=== PATIENT | male | born 1995 | race Caucasian/White ===

== ENCOUNTER 2016-09-17 17:22 | Emergency (ER) | payer OTHER ==
[2016-09-17] MEDS ORDERED: NS 0.9% 1000 ML* 1,000 ML IV ONE (17:52)
--- NOTE | 2016-09-17 18:10 | ED ---
HPI Febrile Illness - HPI Summary HPI Summary: Patient is a healthy 21 yo male who presents for evaluation of chest pain. Patient was having some body aches and fever on Thursday night. Continued on Thursday, but with superior chest pain. Sharp and intermittent, atraumatic, non radiating pain. Does not recall any trauma, heavy lifting. No exertional or positional assocaition to the chest pain. Took motrin 400 mg last night with resolution of the fever and body aches. Nearly resolved chest pain today, but since still there went to the [facility]. Has been trying to drink soup and crackers, but feels a little lightheaded with standing. Denies recent antibiotics or antipyretics before arrival, recent travel. Had EKG performed at the [facility] and was directed to the ED. - History of Current Complaint Chief Complaint: EDChestPainROMI Time Seen by Provider: 09/17/16 17:42 Hx Obtained From: Patient Onset/Duration: Started Days Ago Initial Severity: Moderate Current Severity: None Pain Intensity: 1 - Allergy/Home Medications Allergies/Adverse Reactions: Allergies Allergy/AdvReac Type Severity Reaction Status Date / Time No Known Allergies Allergy Verified 09/17/16 17:24 PMH/Surg Hx/FS Hx/Imm Hx Previously Healthy: Yes Infectious Disease History: No Infectious Disease History: Denies: Traveled Outside the [place] in Last 30 Days Review of Systems Negative: Fever, Chills Positive: Chest Pain. Negative: Palpitations Respiratory: Negative Negative: Shortness Of Breath, Cough All Other Systems Reviewed And Are Negative: Yes Physical Exam Triage Information Reviewed: Yes Vital Signs On Initial Exam: Initial Vitals Temp Pulse Resp BP Pulse Ox 100 F 125 20 148/78 97 09/17/16 17:24 09/17/16 17:24 09/17/16 17:24 09/17/16 17:24 09/17/16 17:24 Vital Signs Reviewed: Yes Appearance: Positive: Well-Appearing, No Pain Distress, Well-Nourished Skin: Positive: Warm, Skin Color Reflects Adequate Perfusion, Dry, Other - Slightly reproducible superior sternal chest pain. Eyes: Positive: Normal, EOMI, KHANG ENT: Positive: Normal ENT inspection Neck: Positive: Supple Respiratory/Lung Sounds: Positive: Clear to Auscultation, Breath Sounds Present Cardiovascular: Positive: Normal, RRR, Pulses are Symmetrical in both Upper and Lower Extremities Musculoskeletal: Positive: Normal, Strength/ROM Intact Neurological: Positive: Normal, Sensory/Motor Intact, Alert, Oriented to Person Place, Time, CN Intact II-III, Reflexes Intact, NV Bundle Intact Distally, Normal Gait. Negative: Cerebellar Dysfunction Diagnostics - Vital Signs Vital Signs Temp Pulse Resp BP Pulse Ox 09/17/16 17:24 100 F 125 20 148/78 97 - Laboratory Result Diagrams: 09/17/16 18:00 09/17/16 18:00 Lab Statement: Any lab studies that have been ordered have been reviewed, and results considered in the medical decision making process. - Ultrasound No standard instances Ultrasound Interpretation Completed By: ED Physician - Limited Transthoracic Echocardiography: No significant murmur, pericardial effusion. IVC less than 2 cm with >50% respirophasic variation. Concentric motrin without regional wall motion abnormality. Lam Chacon MD, RDMS RDCS - EKG No standard instances Cardiac Rate: NL EKG Rhythm: Sinus Tachycardia ST Segment: Normal Ectopy: None - HR 116, Slight OR depression in I, aVF, v4-V6 Course/Dx - Febrile Illness Differential Diagnoses: Other: - Primary concern for viral syndrome and non ischemic chest pain. Prolonged duration and near resolution of chest pain. Low wells, but tachycardic and will send d dimer. CXR for occult pneumonia. EKG without acute ischemic changes. IVF for resuscitation. DC home planned. - Diagnoses Provider Diagnoses: Chest pain, Dehydration Discharge - Discharge Plan Condition: Stable Disposition: HOME Patient Education Materials: Chest Pain (ED), Viral Syndrome (ED) Referrals: [facility] [Primary Care Provider] -
[2016-09-17 18:13] VITALS: BP 108/53
[2016-09-17 18:19] LABS: Hematocrit 44 % (42-52); Hemoglobin 15.2 g/dl (14.0-18.0); Mean Corpuscular HGB Conc 34 g/dl (31-36); Mean Corpuscular Hemoglobin 29 pg (27-31); Mean Corpuscular Volume 85 fL (80-94); Mean Platelet Volume 7 um3 (7.4-10.4); Red Blood Count 5.24 10^6/ul (4.0-5.4); Red Cell Distribution Width 12 % (10.5-15); White Blood Count 11.4 10^3/ul (3.5-10.8)
[2016-09-17 18:31] LABS: Potassium 3.9 mmol/L (3.5-5.0)
--- NOTE | 2016-09-17 18:54 | RAD ---
INDICATION: Chest pain COMPARISON: None TECHNIQUE: PA and lateral dual-energy views were obtained. FINDINGS: Bones/Soft Tissues: There are no acute bony findings. Cardiomediastinal: The cardiomediastinal silhouette is normal. Lungs: There are no infiltrates. Pleura: There are no pleural effusions. Other: None IMPRESSION: NORMAL CHEST.
[2016-09-17 19:02] LABS: BUN/Creatinine Ratio 14.3 (8-20); Calcium 9.9 mg/dL (8.6-10.3); EGFR African American 124.2 (>60); EGFR Non-African American 96.6 (>60)
== END 2016-09-17 19:22 | disposition home or self-care (01) ==
LOC: ED 17:22
DX: E86.0 Dehydration (principal); R50.9 Fever, unspecified; R07.9 Chest pain, unspecified
CPT/HCPCS: 36415; 71020; 80048; 84484; 85025; 85379; 93005; 99282

== ENCOUNTER 2016-10-07 08:16 | Emergency (ER) | payer OTHER ==
[2016-10-07 08:27] VITALS: BP 127/80
--- NOTE | 2016-10-07 09:38 | UC ---
FLU HPI - HPI Summary HPI Summary: 2 DAYS OF FEVER, MYALGIAS, ST. NO COUGH OR EAR PAIN. NO N/V/D. - History of Current Complaint Chief Complaint: UCRespiratory Stated Complaint: SORE THROAT Time Seen by Provider: 10/07/16 09:26 Hx Obtained From: Patient Onset/Duration: Gradual Onset, Lasting Days, Still Present Severity Currently: Moderate Severity Initially: Moderate Pain Intensity: 7 Pain Scale Used: 0-10 Numeric Associated Signs & Symptoms: Positive: Fever, Myalgia, Sore Throat - Allergy/Home Medications Allergies/Adverse Reactions: Allergies Allergy/AdvReac Type Severity Reaction Status Date / Time No Known Allergies Allergy Verified 10/07/16 08:27 Home Medications: Home Medications Melatonin 10/07/16 [History] PMH/Surg Hx/FS Hx/Imm Hx Respiratory History Of: Reports: Asthma - Surgical History Surgical History: None - Family History Known Family History: Positive: Diabetes Negative: Hypertension - Social History Alcohol Use: Weekly Substance Use Type: None Smoking Status (MU): Never Smoked Tobacco Review of Systems Constitutional: Fever, Fatigue ENT: Sore Throat Respiratory: Negative Cardiovascular: Negative Musculoskeletal: Myalgia All Other Systems Reviewed And Are Negative: Yes Physical Exam Triage Information Reviewed: Yes Appearance: Well-Appearing, No Pain Distress, Well-Nourished Vital Signs: Initial Vital Signs Temp 98.8 F 10/07/16 08:21 Pulse 101 10/07/16 08:21 Resp 16 10/07/16 08:21 BP 127/80 10/07/16 08:21 Pulse Ox 97 10/07/16 08:21 Vital Signs Reviewed: Yes Eyes: Positive: Conjunctiva Clear ENT: Positive: Hearing grossly normal, Pharyngeal erythema, TMs normal, Tonsillar swelling Neck: Positive: Supple, Tenderness @ - SPFL CERVICAL LAD, Enlarged Nodes @ - SPFL CERVICAL LAD Respiratory Exam: Normal Cardiovascular: Positive: Tachycardia Abdomen Description: Positive: Soft Musculoskeletal: Positive: No Edema Neurological: Positive: Alert Psychological: Positive: Age Appropriate Behavior Skin: Negative: rashes Flu Course/Dx - Differential Dx/Diagnosis Provider Diagnoses: STREP PHARYNGITIS - CLINICAL DX Discharge - Discharge Plan Condition: Stable Disposition: HOME Prescriptions: Amoxicillin CAP* 1,000 mg PO Q12H #40 cap Patient Education Materials: Strep Throat (ED) Referrals: [facility] [Primary Care Provider] - If Needed Additional Instructions: CLINICALLY YOU MEET CRITERIA FOR STREP SO WE WILL TREAT YOU SUCH. THERE IS STILL A POSSIBILITY THAT YOUR SYMPTOMS ARE VIRALLY MEDIATED AND IF SO YOU WILL RECOVER ON YOUR OWN WITH TIME. OTC CHLORASEPTIC OR CEPACOL LOZENGES FOR SORE THROAT NEEDED ONCE SYMPTOMS RESOLVED - NEW TOOTHBRUSH DO NOT SHARE FOOD, DRINK, UTENSILS
== END 2016-10-07 09:47 | disposition home or self-care (01) ==
LOC: UCEAST 08:16
DX: J02.0 Streptococcal pharyngitis (principal)
CPT/HCPCS: 99212; G0463